=== PATIENT | male | born 1965 | race Caucasian/White ===

== ENCOUNTER 2016-04-17 14:29 | Inpatient (IN) | payer OTHER ==
[2016-04-17 15:48] VITALS: BMI 25.8
--- NOTE | 2016-04-17 16:47 | HP ---
CIWA Score - CIWA Score Nausea/Vomitin Muscle Tremors: 3 Anxiety: 3 Agitation: 3 Paroxysmal Sweats: 2 Orientation: 0-Oriented Tacttile Disturbances: 2-Mild Itch/Numbness/Burn Auditory Disturbances: 2-Mild Harshness/Frighten Visual Disturbances: 2-Mild Sensitivity Headache: 2-Mild CIWA-Ar Total Score: 22 Admission ROS BHS - HPI Chief Complaint: I NEED HELP TO STOP DRINKING ALCOHOL Allergies/Adverse Reactions: Allergies Allergy/AdvReac Type Severity Reaction Status Date / Time No Known Allergies Allergy Verified 04/17/16 16:36 History of Present Illness: THIS 50 YEARS OLD MALE WITH ALCOHOL DEPENDENCE,WITHDRAWAL SYMPTOM,LAST DETOX 2014 SEVERAL ADMISSIONS IN DETOX ANXIETY DEPRESSION LOW BACK PAIN NICOTINE DEPENDENCE LONGEST PERIOD OF SOBRIETY 2 YEARS Exam Limitations: No Limitations - Ebola screening Have you traveled outside of the country in the last 21 days: No (N) Have you had contact with anyone from an Ebola affected area: No Have you been sick,other than usual withdrawal symptoms: No Do you have a fever: No - Review of Systems Constitutional: Loss of Appetite, Malaise, Night Sweats, Changes in sleep, Weakness, Unintentional Wgt. Loss EENT: reports: Nose Congestion Respiratory: reports: No Symptoms reported Cardiac: reports: Palpitations GI: reports: Nausea, Poor Appetite, Vomiting, Abdominal cramping : reports: No Symptoms Reported Musculoskeletal: reports: Back Pain, Muscle Pain Integumentary: reports: Dryness Neuro: reports: Headache, Tremors Endocrine: reports: No Symptoms Reported Hematology: reports: No Symptoms Reported Psychiatric: reports: Anxious, Depressed Patient History - Patient Medical History Hx Anemia: No Hx Asthma: No Hx Chronic Obstructive Pulmonary Disease (COPD): No Hx Cancer: No Hx Cardiac Disorders: No Hx Congestive Heart Failure: No Hx Hypertension: No Hx Hypercholesterolemia: No Hx Pacemaker: No HX Cerebrovascular Accident: No Hx Seizures: No Hx Dementia: No Hx Diabetes: No Hx Gastrointestinal Disorders: No Hx Liver Disease: No Hx Genitourinary Disorders: No Hx Sexually Transmitted Disorders: No Hx Renal Disease (ESRD): No Hx Thyroid Disease: No Hx Human Immunodeficiency Virus (HIV): (NEVER BEEN TESTED BEFORE) Hx Hepatitis C: No Hx Depression: Yes (ANXIETY,INSOMNIA) Hx Suicide Attempt: No Hx Bipolar Disorder: No Hx Schizophrenia: No Other Medical History: NO SUICIDAL,NO HOMICIDAL - Patient Surgical History Past Surgical History: No - PPD History Previous Implant?: Yes Implanted On Prior R Admission?: No PPD to be Administered?: Yes - Smoking Cessation Smoking history: Current every day smoker Have you smoked in the past 12 months: Yes Cigars Per Day: 0 Hx Chewing Tobacco Use: No Initiated information on smoking cessation: Yes 'Breaking Loose' booklet given: 04/17/16 - Substance & Tx. History Hx Alcohol Use: Yes Hx Substance Use: Yes Substance Use Type: Alcohol Hx Substance Use Treatment: Yes ([facility] IN 2014) - Substances Abused Alcohol Route: Oral Frequency: Daily Amount used: 1 LITER VODKA Age of first use: 14 Date of Last Use: 04/17/16 Family Disease History - Family Disease History Family Disease History: Other: Father (ALCOHOL,) Admission Physical Exam [facility] - Vital Signs Vital Signs: Vital Signs - 24 hr 04/17/16 15:47 Temperature 97.2 F L Pulse Rate 72 Respiratory 18 Rate Blood Pressure 120/63 - Physical General Appearance: Yes: Moderate Distress, Tremorous, Irritable, Sweating, Anxious HEENTM: Yes: Nasal Congestion Respiratory: Yes: Lungs Clear Neck: Yes: Within Normal Limits Breast: Yes: Within Normal Limits Cardiology: Yes: Within Normal Limits, Regular Rhythm, Regular Rate, S1, S2 Abdominal: Yes: Within Normal Limits, Normal Bowel Sounds, Non Tender, Flat, Soft Genitourinary: Yes: Within Normal Limits Back: Yes: Muscle Spasm Extremities: Yes: Tremors 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 NML intact, Fully Oriented, Alert, Motor Strength 5/5 Integumentary: Yes: Dry Lymphatic: Yes: Within Normal Limits - Diagnostic (1) Alcohol dependence with uncomplicated withdrawal Current Visit: Yes Status: Acute (2) Anxiety and depression Current Visit: Yes Status: Acute (3) Low back pain Current Visit: Yes Status: Acute (4) Nicotine dependence Current Visit: Yes Status: Acute (5) Weight loss Current Visit: Yes Status: Acute Cleared for Admission [facility] - Detox or Rehab [facility] Level of Care: Medically Managed Detox Regimen/Protocol: Librium [facility] Breath Alcohol Content Breath Alcohol Content: 0.165
[2016-04-17] MEDS ORDERED: P-EPHED 60MG/TRIPROLIDI 2.5MG TABLET PO PRN (16:57)
[2016-04-17] MEDS ORDERED: guaiFENesin/D-METHORPHAN HB 10 ML UNIT-DOSE CUPS PO PRN (16:57)
[2016-04-17] MEDS ORDERED: chlordiazePOXIDE HCL 25 MG CAPSULE PO PRN (16:57)
[2016-04-17] MEDS ORDERED: LOPERAMIDE HCL 2 MG CAPSULE PO PRN (16:57)
[2016-04-17] MEDS ORDERED: MAGNESIUM CITRATE 300 ML BOTTLE PO PRN (16:57)
[2016-04-17] MEDS ORDERED: diphenhydrAMINE HCL 50 MG CAPSULE PO PRN (16:57)
[2016-04-17] MEDS ORDERED: IBUPROFEN 400 MG TABLET (FP) PO PRN (16:57)
[2016-04-17] MEDS ORDERED: MENTHOL/PHENOL 1 EACH UD MM PRN (16:57)
[2016-04-17] MEDS ORDERED: MAG HYDROX/AL HYDROX/SIMETH 30 ML UNIT-DOSE CUP PO PRN (16:57)
[2016-04-17] MEDS ORDERED: MAGNESIUM HYDROX 2400MG/30ML ORAL SUSPENSION 30 ML CUP PO PRN (16:57)
[2016-04-17] MEDS: chlordiazePOXIDE HCL 25 MG CAPSULE PO ONE ×2 (18:43→18:45)
[2016-04-17] MEDS: NICOTINE 21 MG/24 HOURS TOPICAL PATCH TD SCH (18:46)
[2016-04-17] MEDS: NICOTINE POLACRILEX 4 MG GUM BC PRN (18:46)
[2016-04-17] MEDS: THIAMINE HCL 100 MG TABLET (FP) PO SCH (22:17)
[2016-04-17] MEDS: chlordiazePOXIDE HCL 25 MG CAPSULE PO SCH (22:18)
[2016-04-18 03:24] LABS: URINE APPEARANCE CLEAR; URINE BILIRUBIN NEGATIVE (NEGATIVE); URINE BLOOD NEGATIVE (NEGATIVE); URINE COLOR STRAW; URINE GLUCOSE (UA) NEGATIVE (NEGATIVE); URINE KETONE NEGATIVE (NEGATIVE); URINE LEUK ESTERASE NEGATIVE (NEGATIVE); URINE NITRITE NEGATIVE (NEGATIVE); URINE PROTEIN NEGATIVE (NEGATIVE); URINE UROBILINOGEN NEGATIVE E.U./dl (0.2-1.0)
[2016-04-18] MEDS: chlordiazePOXIDE HCL 25 MG CAPSULE PO SCH ×4 (06:03→22:44)
--- NOTE | 2016-04-18 09:28 | CONSULT ---
[facility] Psychiatric Consult - Data Date of interview: 04/18/16 Admission source: [facility] Identifying data: This is the first admission to [facility] for this 50 y/o male seeking detox treatment on for alcohol dependence.Patient is ,a father of two,homeless,unemployed and supported on food stamps. Substance Abuse History: - Smoking Cessation. Smoking history: Current every day smoker. Have you smoked in the past 12 months: Yes. Cigars Per Day: 0. Hx Chewing Tobacco Use: No. Initiated information on smoking cessation: Yes. ' Breaking Loose' booklet given: 04/17/16. - Substance & Tx. History. Hx Alcohol Use: Yes. Hx Substance Use: Yes. Substance Use Type: Alcohol. Hx Substance Use Treatment: Yes ([facility] IN 2014). - Substances Abused. Alcohol. Route: Oral. Frequency: Daily. Amount used: 1 LITER VODKA. Age of first use: 14. Date of Last Use: 04/17/16. Confirmed by the patient. Medical History: Patient endorses good physical health. Psychiatric History: Patient denies. Physical/Sexual Abuse/Trauma History: Patient denies. Mental Status Exam - Mental Status Exam Alert and Oriented to: Time, Place, Person Cognitive Function: Good Patient Appearance: Well Groomed Mood: Withdrawn, Anxious, Apprehensive Affect: Mood Congruent Patient Behavior: Fatigued, Appropriate, Cooperative Speech Pattern: Clear Voice Loudness: Normal Thought Process: Goal Oriented Thought Disorder: Not Present Hallucinations: Denies Suicidal Ideation: Denies Homicidal Ideation: Denies Insight/Judgement: Poor Sleep: Well Appetite: Good Muscle strength/Tone: Normal Gait/Station: Normal Psychiatric Findings - Problem List ([place] 1, 2,3) (1) Alcohol dependence with uncomplicated withdrawal Current Visit: Yes Status: Acute (2) Low back pain Current Visit: Yes Status: Acute (3) Nicotine dependence Current Visit: Yes Status: Acute - Initial Treatment Plan Initial Treatment Plan: Psychoeducation.Detoxification in progress.Observation.
[2016-04-18] MEDS: NICOTINE 21 MG/24 HOURS TOPICAL PATCH TD SCH (10:10)
[2016-04-18] MEDS: PRENATAL VITAMINS W/ FOLIC ACID TABLET (FP) PO SCH (10:10)
--- NOTE | 2016-04-18 10:11 | PN ---
BHS CIWA - CIWA Score Nausea/Vomitin Muscle Tremors: 4-Moderate,w/Arms Extend Anxiety: 4-Mod. Anxious/Guarded Agitation: 3 Paroxysmal Sweats: No Perspiration Orientation: 0-Oriented Tacttile Disturbances: 2-Mild Itch/Numbness/Burn Auditory Disturbances: 0-None Visual Disturbances: 0-None Headache: 3-Moderate CIWA-Ar Total Score: 18 BHS Progress Note (SOAP) Subjective: Restless, interrupted sleep, anxiety, nausea Objective: Vital Signs Period Temp Pulse Resp BP Sys/Gaitan Pulse Ox Last 24 Hr 96.8 F-97.3 F 72-95 18-20 120-134/63-78 Laboratory Last Values Urine Color Straw 04/17/16 23:10 Urine Appearance Clear 04/17/16 23:10 Urine pH 6.0 (5.0-8.0) 04/17/16 23:10 Ur Specific [place] 1.006 (1.001-1.035) 04/17/16 23:10 Urine Protein Negative (NEGATIVE) 04/17/16 23:10 Urine Glucose (UA) Negative (NEGATIVE) 04/17/16 23:10 Urine Ketones Negative (NEGATIVE) 04/17/16 23:10 Urine Blood Negative (NEGATIVE) 04/17/16 23:10 Urine Nitrite Negative (NEGATIVE) 04/17/16 23:10 Urine Bilirubin Negative (NEGATIVE) 04/17/16 23:10 Urine Urobilinogen Negative E.U./dl (0.2-1.0) 04/17/16 23:10 Ur Leukocyte Esterase Negative (NEGATIVE) 04/17/16 23:10 labs noted Assessment: Withdrawal Symptoms Plan: Continue Detox Protocol
[2016-04-18 11:11] LABS: MCH 34.6 pg (25.7-33.7); MCHC 33.8 g/dl (32.0-35.9); MEAN CELL VOLUME 102.3 fl (80-96); MEAN PLT VOLUME 7.6 fl (7.5-11.1); PLATELET COUNT 130 K/MM3 (134-434); RDW 13.4 % (11.9-15.9); WHITE BLOOD COUNT 5.2 K/mm3 (4.0-10.0)
[2016-04-18 11:17] LABS: ALBUMIN 3.4 g/dl (3.4-5.0); ANION GAP 9 (8-16); CO2 27 mmol/L (21-32); GLUCOSE,RANDOM 98 mg/dL (74-106); SGOT/AST 89 U/L (15-37); SGPT/ALT 48 U/L (12-78)
[2016-04-18 11:19] LABS: ALK PHOS 87 U/L (45-117); BILIRUBIN,TOTAL 1.8 mg/dL (0.2-1.0); CALCIUM 8.7 mg/dL (8.5-10.1); CREATININE 0.6 mg/dL (0.7-1.3); TOT PROT 6.8 g/dl (6.4-8.2)
[2016-04-18] MEDS: hydrOXYzine PAMOATE 50 MG CAPSULE (FP) PO PRN ×3 (11:38→22:45)
[2016-04-18 12:52] LABS: HIV 1 & 2 AB NEGATIVE; HIV 1 AGp24 NEGATIVE
--- NOTE | 2016-04-18 13:38 | EKG ---
Test Reason : Blood Pressure : / mmHG Vent. Rate : 065 BPM Atrial Rate : 065 BPM P-R Int : 172 ms QRS Dur : 102 ms QT Int : 430 ms P-R-T Axes : 064 013 031 degrees QTc Int : 447 ms NORMAL SINUS RHYTHM POOR DATA QUALITY, INTERPRETATION MAY BE ADVERSELY AFFECTED NO PREVIOUS ECGS AVAILABLE Confirmed by SABRINA MORGAN MD ([id number]) on 04/18/2016 1:38:08 PM Referred By: Cuba Holman Confirmed By:SABRINA MORGAN MD
[2016-04-18] MEDS: THIAMINE HCL 100 MG TABLET (FP) PO SCH (22:44)
[2016-04-19] MEDS: chlordiazePOXIDE HCL 25 MG CAPSULE PO SCH ×3 (05:48→17:17)
[2016-04-19] MEDS: NICOTINE 21 MG/24 HOURS TOPICAL PATCH TD SCH (10:11)
[2016-04-19] MEDS: PRENATAL VITAMINS W/ FOLIC ACID TABLET (FP) PO SCH (10:11)
--- NOTE | 2016-04-19 14:22 | PN ---
S CIWA - CIWA Score Nausea/Vomitin-Mild Nausea/No Vomiting Muscle Tremors: 4-Moderate,w/Arms Extend Anxiety: 3 Agitation: 3 Paroxysmal Sweats: No Perspiration Orientation: 0-Oriented Tacttile Disturbances: 1-Very Mild Itch/Numbness Auditory Disturbances: 0-None Visual Disturbances: 0-None Headache: 3-Moderate CIWA-Ar Total Score: 15 BHS Progress Note (SOAP) Subjective: Anxious, sweating, tremor, restless, nausea Objective: 04/19/16 14:20 Last Vital Signs Temp Pulse Resp BP Pulse Ox 97.3 F L 84 16 112/75 04/19/16 13:30 04/19/16 13:30 04/19/16 13:30 04/19/16 13:30 Laboratory Tests 04/17/16 04/18/16 04/18/16 23:10 07:50 07:50 WBC 5.2 RBC 4.54 Hgb 15.7 Hct 46.4 MCV 102.3 H MCHC 33.8 RDW 13.4 Plt Count 130 L MPV 7.6 Sodium Potassium Chloride Carbon Dioxide Anion Gap BUN Creatinine Creat Clearance w eGFR Random Glucose Calcium Total Bilirubin AST ALT Alkaline Phosphatase Total Protein Albumin Urine Color Straw Urine Appearance Clear Urine pH 6.0 Ur Specific [place] 1.006 Urine Protein Negative Urine Glucose (UA) Negative Urine Ketones Negative Urine Blood Negative Urine Nitrite Negative Urine Bilirubin Negative Urine Urobilinogen Negative Ur Leukocyte Esterase Negative RPR Titer HIV 1&2 Antibody Screen Negative HIV P24 Antigen Negative 04/18/16 04/18/16 07:50 07:50 WBC RBC Hgb Hct MCV MCHC RDW Plt Count MPV Sodium 141 Potassium 3.8 Chloride 105 Carbon Dioxide 27 Anion Gap 9 BUN 9 Creatinine 0.6 L Creat Clearance w eGFR > 60 Random Glucose 98 Calcium 8.7 Total Bilirubin 1.8 H AST 89 H ALT 48 Alkaline Phosphatase 87 Total Protein 6.8 Albumin 3.4 Urine Color Urine Appearance Urine pH Ur Specific [place] Urine Protein Urine Glucose (UA) Urine Ketones Urine Blood Urine Nitrite Urine Bilirubin Urine Urobilinogen Ur Leukocyte Esterase RPR Titer Nonreactive HIV 1&2 Antibody Screen HIV P24 Antigen Labs noted Assessment: 04/19/16 14:20 Withdrawal symptoms Plan: Continue detox
[2016-04-19] MEDS: hydrOXYzine PAMOATE 50 MG CAPSULE (FP) PO PRN ×2 (17:18→22:18)
[2016-04-19] MEDS: chlordiazePOXIDE 5 MG CAPSULE PO SCH (22:17)
[2016-04-19] MEDS: THIAMINE HCL 100 MG TABLET (FP) PO SCH (22:17)
[2016-04-20] MEDS: chlordiazePOXIDE 5 MG CAPSULE PO SCH ×3 (05:42→17:29)
[2016-04-20] MEDS: ACETAMINOPHEN 325 MG TABLET (FP) PO PRN (05:43)
[2016-04-20] MEDS: PRENATAL VITAMINS W/ FOLIC ACID TABLET (FP) PO SCH (10:21)
[2016-04-20] MEDS: NICOTINE 21 MG/24 HOURS TOPICAL PATCH TD SCH (10:22)
--- NOTE | 2016-04-20 10:32 | PN ---
BHS Progress Note (SOAP) Subjective: Sweating,interrupted sleep,restless Objective: 04/20/16 10:31 Vital Signs - 8 hr 04/20/16 04/20/16 04/20/16 03:28 06:21 10:08 Temperature 96.3 F L 97 F L Pulse Rate 87 91 H Respiratory 20 18 20 Rate Blood Pressure 102/69 104/68 Laboratory Tests 04/17/16 04/18/16 04/18/16 23:10 07:50 07:50 WBC 5.2 RBC 4.54 Hgb 15.7 Hct 46.4 MCV 102.3 H MCHC 33.8 RDW 13.4 Plt Count 130 L MPV 7.6 Sodium Potassium Chloride Carbon Dioxide Anion Gap BUN Creatinine Creat Clearance w eGFR Random Glucose Calcium Total Bilirubin AST ALT Alkaline Phosphatase Total Protein Albumin Urine Color Straw Urine Appearance Clear Urine pH 6.0 Ur Specific [place] 1.006 Urine Protein Negative Urine Glucose (UA) Negative Urine Ketones Negative Urine Blood Negative Urine Nitrite Negative Urine Bilirubin Negative Urine Urobilinogen Negative Ur Leukocyte Esterase Negative RPR Titer HIV 1&2 Antibody Screen Negative HIV P24 Antigen Negative 04/18/16 04/18/16 07:50 07:50 WBC RBC Hgb Hct MCV MCHC RDW Plt Count MPV Sodium 141 Potassium 3.8 Chloride 105 Carbon Dioxide 27 Anion Gap 9 BUN 9 Creatinine 0.6 L Creat Clearance w eGFR > 60 Random Glucose 98 Calcium 8.7 Total Bilirubin 1.8 H AST 89 H ALT 48 Alkaline Phosphatase 87 Total Protein 6.8 Albumin 3.4 Urine Color Urine Appearance Urine pH Ur Specific [place] Urine Protein Urine Glucose (UA) Urine Ketones Urine Blood Urine Nitrite Urine Bilirubin Urine Urobilinogen Ur Leukocyte Esterase RPR Titer Nonreactive HIV 1&2 Antibody Screen HIV P24 Antigen labs noted Assessment: 04/20/16 10:32 withdrawal sx. Plan: continue detox
[2016-04-20] MEDS: NICOTINE POLACRILEX 4 MG GUM BC PRN (12:19)
[2016-04-20] MEDS: chlordiazePOXIDE HCL 10 MG CAPSULE PO SCH (22:28)
[2016-04-20] MEDS: THIAMINE HCL 100 MG TABLET (FP) PO SCH (22:28)
[2016-04-20] MEDS: hydrOXYzine PAMOATE 50 MG CAPSULE (FP) PO PRN (22:29)
[2016-04-21] MEDS: chlordiazePOXIDE HCL 10 MG CAPSULE PO SCH ×2 (05:38→11:05)
[2016-04-21] MEDS: ACETAMINOPHEN 325 MG TABLET (FP) PO PRN (05:38)
[2016-04-21] MEDS: NICOTINE POLACRILEX 4 MG GUM BC PRN (09:20)
[2016-04-21 09:47] VITALS: BP 99/61; PULSE 88; TEMP 95.6
--- NOTE | 2016-04-21 10:26 | DS ---
[facility] Detox Discharge Summary Admission Date: 04/17/16 Discharge Date: 04/21/16 - History Present History: Alcohol Dependence Additional Comments: DETOX COMPLETED. Pertinent Past History: LOWER BACK PAIN - Physical Exam Results Vital Signs: Vital Signs Temperature 95.6 F L 04/21/16 09:47 Pulse Rate 88 04/21/16 09:47 Respiratory Rate 18 04/21/16 09:47 Blood Pressure 99/61 04/21/16 09:47 O2 Sat by Pulse Oximetry (%) Pertinent Admission Physical Exam Findings: WITHDRAWAL SX - Treatment Hospital Course: Detox Protocol Followed, Detoxed Safely, Responded well, Discharged Condition Good - Medication Discharge Medications: Ambulatory Orders NK [No Known Home Medication] 04/17/16 - Diagnosis (1) Alcohol dependence with uncomplicated withdrawal Current Visit: Yes Status: Acute (2) Low back pain Current Visit: Yes Status: Chronic Qualifiers: Chronicity: unspecified Back pain laterality: unspecified (3) Nicotine dependence Current Visit: Yes Status: Chronic Qualifiers: Nicotine product type: cigarettes Substance use status: in withdrawal Qualified Code(s): F17.213 - Nicotine dependence, cigarettes, with withdrawal (4) Weight loss Current Visit: Yes Status: Acute - AMA Did Patient Leave Against Medical Advice: No
[2016-04-21] MEDS: NICOTINE 21 MG/24 HOURS TOPICAL PATCH TD SCH (11:05)
[2016-04-21] MEDS: PRENATAL VITAMINS W/ FOLIC ACID TABLET (FP) PO SCH (11:05)
== END 2016-04-21 12:46 | disposition home or self-care (01) | DRG 774 ==
LOC: YASAS 14:29 → Y3N 18:02
PROVIDERS: ADMIT Internal Medicine; ATTEND Internal Medicine
PROC: HZ2ZZZZ Detoxification Services for Substance Abuse Treatment (ICD-10-PCS; principal; 2016-04-21)
DX: F10.230 Alcohol dependence with withdrawal, uncomplicated (principal); F17.213 Nicotine dependence, cigarettes, with withdrawal; F14.20 Cocaine dependence, uncomplicated; M54.5 Low back pain; R63.4 Abnormal weight loss; Z68.25 Body mass index [BMI] 25.0-25.9, adult; Z59.0 Homelessness
CPT/HCPCS: 36415; 80053; 81003; 85027; 86593; 87389; 93005; 93010